=== PATIENT | female | born 1975 | race Two or more races ===

== ENCOUNTER 2025-01-09 12:53 | Emergency (ER) | payer MEDICAID ==
[~2025-01-09] VITALS: Ht 152.4 cm; Wt 90.7 kg
[2025-01-09 13:10] VITALS: BP 114/64; TEMP 98.3
[2025-01-09] MEDS ORDERED: CLIN300C3 PO (13:37)
[2025-01-09] MEDS ORDERED: NEOM10DR11 RIGHT EAR (13:37)
[2025-01-09 13:42] VITALS: O2SAT 98
== END 2025-01-09 13:42 | disposition home or self-care (01) ==
LOC: ER 13:09
DX: H60.91 Unspecified otitis externa, right ear (principal); K04.7 Periapical abscess without sinus; E11.9 Type 2 diabetes mellitus without complications; F17.200 Nicotine dependence, unspecified, uncomplicated; Z86.19 Personal history of other infectious and parasitic diseases; Z88.0 Allergy status to penicillin

== ENCOUNTER 2025-01-12 09:50 | Emergency (ER) | payer MEDICAID ==
[~2025-01-12] VITALS: Ht 165.1 cm; Wt 117.9 kg
[~2025-01-12 09:50] MED LIST: CLIN300C3 PO; NEOM10DR11 RIGHT EAR
[2025-01-12 09:52] VITALS: TEMP 98.3
[2025-01-12] MEDS ORDERED: LEVETIRACETAM (250 MG) 250 MG TABLET ONE (10:30)
[2025-01-12] MEDS: LEVETIRACETAM (250 MG) 250 MG TABLET PO ONE (10:32)
[2025-01-12 11:35] LABS: PLATELET COUNT (AUTO) 382 K/uL (150-450); RED BLOOD CELL COUNT(AUTO) 4.48 MIL/uL (4.0-5.2); RED CELL DISTRIBUTION WIDTH 23.5 % (11.5-15.0); WHITE BLOOD COUNT (AUTO) 3.6 K/uL (4.3-11.0)
[2025-01-12 11:40] LABS: CALCIUM, SERUM 8.7 mg/dL (8.5-10.1); CREATININE 0.7 mg/dL (0.6-1.3); SODIUM SERUM 137 mmol/L (136-145); UREA NITROGEN, BLOOD 21 mg/dL (7-18)
[2025-01-12 11:46] LABS: ALCOHOL, BLOOD < 3 mg/dL (0-10); ASPARTATE AMINOTRANSFERASE 11 U/L (15-37); TOTAL PROTEIN, SERUM 7.6 g/dL (6.4-8.2)
[2025-01-12] MEDS ORDERED: LEVE1000 PO (11:57)
[2025-01-12 11:59] LABS: PREGNANCY TEST URINE QUAL NEGATIVE (NEGATIVE)
[2025-01-12 12:03] LABS: APPEARANCE,URINE CLEAR (CLEAR); BLOOD, URINE NEGATIVE Ery/uL (NEGATIVE); LEUKOCYTE ESTERASE ,URINE NEGATIVE (NEGATIVE); NITRITE, URINE NEGATIVE (NEGATIVE); UGLUCOSE NEGATIVE (NEGATIVE)
[2025-01-12 12:06] LABS: AMPHETAMINE, URINE NEGATIVE (NEGATIVE); BARBITURATE, URINE NEGATIVE (NEGATIVE); BENZODIAZEPINE, URINE NEGATIVE (NEGATIVE); COCCAINE, URINE NEGATIVE (NEGATIVE); OPIATE, URINE NEGATIVE (NEGATIVE)
[2025-01-12 12:10] LABS: CANNABINOID, URINE POSITIVE (NEGATIVE)
[2025-01-12 14:05] VITALS: BP 117/87; O2SAT 97
== END 2025-01-12 12:45 | disposition home or self-care (01) ==
LOC: EDUNIT# 09:50 → ER 09:57
DX: G40.909 Epilepsy, unspecified, not intractable, without status epilepticus (principal); E11.9 Type 2 diabetes mellitus without complications; F17.200 Nicotine dependence, unspecified, uncomplicated; Z88.0 Allergy status to penicillin; Z91.048 Other nonmedicinal substance allergy status; Z79.899 Other long term (current) drug therapy
CPT/HCPCS: 36415; 80048-TC; 80076-TC; 84703-TC; 85025-TC; G0480